=== PATIENT | female | born 2000 | race Two or more races ===

== ENCOUNTER 2021-11-04 15:36 | Emergency (ER) | payer MEDICAID, OTHER ==
[~2021-11-04] VITALS: Ht 157.5 cm; Wt 75.8 kg
[2021-11-04 16:59] LABS: Basophils # (auto) 0 10 ^3/uL (0-0.2); Basophils % (auto) 0.3 % (0.0-2.0); Eosinophils # (auto) 0.1 10 ^3/uL (0-0.8); Monocytes # (auto) 0.6 10 ^3/uL (0-1.3); Neutrophils # (auto) 7.9 10 ^3/uL (1.6-8.6)
[2021-11-04 17:01] LABS: Eosinophils % (auto) 0.8 % (0.0-7.0); Hematocrit 39.8 % (36.0-46.0); Hemoglobin 12.7 g/dL (12.2-16.2); Lymphocytes # (auto) 2.6 10 ^3/uL (0.4-5.4); Lymphocytes % (auto) 23.4 % (10.0-50.0); Mean Corpuscular Hemoglobin 25.5 pg (28.0-32.0); Mean Corpuscular Volume 79.8 fL (80.0-100.0); Monocytes % (auto) 5.7 % (0.0-12.0); Neutrophils % (auto) 69.8 % (37.0-80.0); Nucleated Red Blood Cells % 0.1 %; Red Blood Cells 4.98 10^6/uL (4.0-5.20); Red Cell Distribution Width 12.4 % (11.8-14.3); White Blood Cell 11.3 10^3/uL (4.4-10.8)
[2021-11-04 17:12] LABS: Albumin 3.2 g/dL (3.4-5.0); Calcium 8.7 mg/dL (8.5-10.1); Potassium 3.7 mmol/L (3.5-5.1)
[2021-11-04 17:15] LABS: BUN/Creatinine Ratio 13.8; Bilirubin, Total 0.3 mg/dL (0.2-1.0); Total Protein 7.7 g/dL (6.4-8.2)
[2021-11-05] MEDS ORDERED: PREN-96 PO (04:36)
[2021-11-05 04:44] VITALS: BP 126/78
== END 2021-11-05 04:56 | disposition home or self-care (01) ==
LOC: ER 15:36
DX: O21.8 Other vomiting complicating pregnancy (principal); O26.891 Other specified pregnancy related conditions, first trimester; R10.2 Pelvic and perineal pain; Z3A.01 Less than 8 weeks gestation of pregnancy
CPT/HCPCS: 36415; 80053; 84702; 85025

== ENCOUNTER → 2021-12-01 | Outpatient (CLI) | payer MEDICAID ==
[~2021-12-01] MED LIST: PREN-96 PO
[2021-12-01 14:32] LABS: Basophils # (auto) 0 10 ^3/uL (0-0.2); Basophils % (auto) 0.3 % (0.0-2.0); Eosinophils # (auto) 0.1 10 ^3/uL (0-0.8); Eosinophils % (auto) 1.6 % (0.0-7.0); Hematocrit 39.1 % (36.0-46.0); Hemoglobin 13.2 g/dL (12.2-16.2); Lymphocytes # (auto) 2.5 10 ^3/uL (0.4-5.4); Lymphocytes % (auto) 29.8 % (10.0-50.0); Mean Corpuscular Hemoglobin 27.1 pg (28.0-32.0); Mean Corpuscular Hgb Conc. 33.6 g/dL (32.0-36.0); Mean Corpuscular Volume 80.5 fL (80.0-100.0); Monocytes # (auto) 0.6 10 ^3/uL (0-1.3); Monocytes % (auto) 6.7 % (0.0-12.0); Neutrophils # (auto) 5.1 10 ^3/uL (1.6-8.6); Neutrophils % (auto) 61.6 % (37.0-80.0); Red Blood Cells 4.86 10^6/uL (4.0-5.20); Red Cell Distribution Width 13.3 % (11.8-14.3); White Blood Cell 8.3 10^3/uL (4.4-10.8)
[2021-12-01 15:30] LABS: Alcohol, Urine < 3.0 mg/dL (0-10); Amphetamine Screen, Urine NEGATIVE (NEGATIVE); Barbiturate Scree,Urine NEGATIVE (NEGATIVE); Benzodiazephine Screen, Urine NEGATIVE (NEGATIVE); Cannabinoid Screen, Urine NEGATIVE (NEGATIVE); Cocaine Screen, Urine NEGATIVE (NEGATIVE); Opiate Scree,Urine NEGATIVE (NEGATIVE); Phencyclidine Screen, Urine NEGATIVE (NEGATIVE)
[2021-12-02 06:06] LABS: RPR Non Reactive (Non Reactive)
== END | disposition home or self-care (01) ==
LOC: LAB 13:44
PROVIDERS: ATTEND Obstetrics & Gynecology
DX: Z34.00 Encounter for supervision of normal first pregnancy, unspecified trimester (principal); Z31.430 Encounter of female for testing for genetic disease carrier status for procreative management; N39.0 Urinary tract infection, site not specified; Z3A.00 Weeks of gestation of pregnancy not specified
CPT/HCPCS: 36415; 80307; 83036; 84112; 84144; 84702; 85025; 86592; 86703; 86762; 86850; 86900; 86901; 87086; 87340

== ENCOUNTER 2022-05-12 10:40 | Observation (INO) | payer MEDICAID ==
[~2022-05-12] VITALS: Ht 167.6 cm; Wt 77.1 kg
== END 2022-05-12 14:35 | disposition home or self-care (01) ==
LOC: UNDOADMOB 10:40 → LDRP 10:40
PROVIDERS: ADMIT Obstetrics & Gynecology; ATTEND Obstetrics & Gynecology
DX: O62.9 Abnormality of forces of labor, unspecified (principal); O26.893 Other specified pregnancy related conditions, third trimester; R10.30 Lower abdominal pain, unspecified; Z3A.34 34 weeks gestation of pregnancy
CPT/HCPCS: 59025; 76805; 81002; G0378

== ENCOUNTER 2022-06-20 08:35 | Observation (INO) | payer MEDICAID | END 2022-06-20 09:45 | disposition home or self-care (01) | LOC: LDRP 08:35 | PROVIDERS: ADMIT Obstetrics & Gynecology; ATTEND Obstetrics & Gynecology | DX: O62.9 Abnormality of forces of labor, unspecified (principal); Z3A.39 39 weeks gestation of pregnancy | CPT/HCPCS: 59025; 81002; G0378 ==

== ENCOUNTER 2022-06-21 10:20 | Observation (INO) | payer MEDICAID | END 2022-06-21 12:56 | disposition home or self-care (01) | LOC: LDRP 10:20 | PROVIDERS: ADMIT Obstetrics & Gynecology; ATTEND Obstetrics & Gynecology | DX: O62.9 Abnormality of forces of labor, unspecified (principal); Z3A.39 39 weeks gestation of pregnancy | CPT/HCPCS: 59025; 76818; 81002; 94760; G0378 ==

== ENCOUNTER 2022-06-23 11:09 | Observation (INO) | payer MEDICAID | END 2022-06-23 13:13 | disposition home or self-care (01) | LOC: UNDOADMOB 11:09 → LDRP 11:09 → UNDODISOB 13:13 | PROVIDERS: ADMIT Obstetrics & Gynecology; ATTEND Obstetrics & Gynecology | DX: O48.0 Post-term pregnancy (principal); O62.9 Abnormality of forces of labor, unspecified; Z3A.39 39 weeks gestation of pregnancy | CPT/HCPCS: 59025; 76818; 81002; 94760; G0378 ==

== ENCOUNTER 2022-06-24 19:02 | Observation (INO) | payer MEDICAID ==
[2022-06-24] MEDS ORDERED: DERMOPLAST 60ML BOTTLE TOP PRN (20:45)
[2022-06-24] MEDS ORDERED: PROMETHAZINE HCL 25 MG/ML 1ML IM PRN (20:45)
[2022-06-24] MEDS ORDERED: ACETAMINOPHEN 325 MG TAB PO PRN (20:45)
[2022-06-24] MEDS ORDERED: LACTATED RINGER'S 1,000 ML IV SCH (20:45)
[2022-06-24] MEDS ORDERED: MINERAL OIL TOPICAL 10ml TOP PRN (20:45)
[2022-06-24] MEDS ORDERED: ONDANSETRON HCL 4 MG/2 ML VIAL IV PRN (20:45)
[2022-06-24] MEDS ORDERED: diphenhdrAMINE HCL 50 MG/1 ML VL IV PRN (20:45)
[2022-06-24] MEDS ORDERED: METHYLERGONOVINE MALEATE 0.2 MG/ML AMP IM PRN (20:45)
[2022-06-24] MEDS ORDERED: TERBUTALINE SULFATE 1 MG/ML 1ML VIAL SC PRN (20:45)
[2022-06-24] MEDS ORDERED: LACT. RINGERS/OXYTOCIN 20UNITS 500 ML IV ONE ×2 (20:45→21:15)
[2022-06-24] MEDS ORDERED: miSOPROStol 100 mcg TAB SL PRN (20:45)
[2022-06-24] MEDS ORDERED: LIDOCAINE 2%HCL (LOCAL ANESTH.) INJ 20ML MDV IJ PRN (20:45)
[2022-06-24] MEDS ORDERED: TRANEXAMIC ACID 1,000 MG in SODIUM CHL 0.9% 100 ML IV PRN (20:45)
[2022-06-24] MEDS ORDERED: BUTORPHANOL TARTRATE 2 MG/1 ML VIAL IV PRN ×2 (20:45)
[2022-06-24] MEDS ORDERED: WITCH HAZEL-GLYCERIN PAD TOP PRN (20:45)
[2022-06-24] MEDS ORDERED: PHISODERM TOP SOLN 240ML BTL TOP PRN (20:45)
[2022-06-24] MEDS ORDERED: CARBOPROST TROMETHAMINE 250 MCG/1ML VIAL IM PRN (20:45)
[2022-06-24] MEDS ORDERED: miSOPROStol 50 MCG per PRE-CUT 1/2 TAB PO PRN (20:45)
[2022-06-25] MEDS ORDERED: DIPHENOXYLATE W/ATROPINE 2.5 MG TAB PO SCH
== END 2022-06-24 21:41 | disposition home or self-care (01) ==
LOC: LDRP 19:02
PROVIDERS: ADMIT Obstetrics & Gynecology; ATTEND Obstetrics & Gynecology
DX: O48.0 Post-term pregnancy (principal); O36.63X0 Maternal care for excessive fetal growth, third trimester, not applicable or unspecified; Z3A.40 40 weeks gestation of pregnancy
CPT/HCPCS: 59025; 76818; 81002; 94760; G0378

== ENCOUNTER 2022-06-25 11:55 | Inpatient (IN) | payer MEDICAID ==
[~2022-06-25] VITALS: Ht 162.6 cm; Wt 91.6 kg
[2022-06-25 12:52] LABS: Urine Bacteria FEW /hpf (None Seen); Urine Blood 3+ /uL (Negative); Urine Hyaline Cast FEW /lpf (0 - 2); Urine Specific Gravity 1.008 (1.001-1.035); Urine WBC 4 /hpf (0 - 5)
[2022-06-25 13:17] LABS: Alcohol, Urine < 3.0 mg/dL (0-10); Amphetamine Screen, Urine NEGATIVE (NEGATIVE); Barbiturate Scree,Urine NEGATIVE (NEGATIVE); Benzodiazephine Screen, Urine NEGATIVE (NEGATIVE); Cannabinoid Screen, Urine NEGATIVE (NEGATIVE); Cocaine Screen, Urine NEGATIVE (NEGATIVE); Opiate Scree,Urine NEGATIVE (NEGATIVE); Phencyclidine Screen, Urine NEGATIVE (NEGATIVE)
[2022-06-25] MEDS ORDERED: PROMETHAZINE HCL 25 MG/ML 1ML IV PRN (13:30)
[2022-06-25] MEDS ORDERED: LIDOCAINE 2%HCL (LOCAL ANESTH.) INJ 20ML MDV IJ PRN (13:30)
[2022-06-25] MEDS ORDERED: BUTORPHANOL TARTRATE 2 MG/1 ML VIAL IV PRN ×2 (13:30)
[2022-06-25] MEDS ORDERED: WITCH HAZEL-GLYCERIN PAD TOP PRN (13:30)
[2022-06-25] MEDS ORDERED: LACT. RINGERS/OXYTOCIN 20UNITS 500 ML IV ONE ×2 (13:30→14:00)
[2022-06-25] MEDS ORDERED: PHISODERM TOP SOLN 240ML BTL TOP PRN (13:30)
[2022-06-25] MEDS ORDERED: DERMOPLAST 60ML BOTTLE TOP PRN (13:30)
[2022-06-25] MEDS: LACTATED RINGER'S 1,000 ML IV SCH ×2 (13:56→20:25)
[2022-06-25 14:06] LABS: Basophils # (auto) 0 10 ^3/uL (0-0.2); Basophils % (auto) 0.3 % (0.0-2.0); Eosinophils # (auto) 0 10 ^3/uL (0-0.8); Eosinophils % (auto) 0.4 % (0.0-7.0); Hematocrit 37.1 % (36.0-46.0); Hemoglobin 11.9 g/dL (12.2-16.2); Lymphocytes # (auto) 2.4 10 ^3/uL (0.4-5.4); Lymphocytes % (auto) 20.6 % (10.0-50.0); Mean Corpuscular Hemoglobin 25.6 pg (28.0-32.0); Mean Corpuscular Volume 79.8 fL (80.0-100.0); Monocytes # (auto) 0.8 10 ^3/uL (0-1.3); Monocytes % (auto) 6.8 % (0.0-12.0); Neutrophils # (auto) 8.3 10 ^3/uL (1.6-8.6); Neutrophils % (auto) 71.9 % (37.0-80.0); Nucleated Red Blood Cells % 0.1 %; Red Blood Cells 4.65 10^6/uL (4.0-5.20); Red Cell Distribution Width 15.3 % (11.8-14.3); White Blood Cell 11.5 10^3/uL (4.4-10.8)
[2022-06-25 14:31] LABS: INR 0.92 (0.9-1.15); Partial Thromboplastin Time 28.6 sec (24.6-33.4)
[2022-06-25] MEDS ORDERED: miSOPROStol 50 MCG per PRE-CUT 1/2 TAB PO PRN (14:45)
[2022-06-25 14:57] LABS: Albumin 2.5 g/dL (3.4-5.0); Calcium 8.4 mg/dL (8.5-10.1); Potassium 3.8 mmol/L (3.5-5.1)
[2022-06-25 15:00] LABS: BUN/Creatinine Ratio 15.7 (10.0-20.0); Bilirubin, Total 0.4 mg/dL (0.2-1.0)
[2022-06-25] MEDS: ceFAZolin 1GM/50ML 50 ML IV SCH (18:25)
[2022-06-26] MEDS: ceFAZolin 1GM/50ML 50 ML IV SCH ×3 (01:55→17:29)
[2022-06-26] MEDS ORDERED: ePHEDrine SULFATE 50 MG/ML AMP IV ONE (02:30)
[2022-06-26] MEDS ORDERED: NALOXONE HCL 0.4 MG/ML VIAL IV ONE (02:30)
[2022-06-26] MEDS ORDERED: ROPIVACAINE HCL 200 ML EPI SCH (02:30)
[2022-06-26] MEDS ORDERED: Lidocaine W-Epinephrine 1.5%-1:200,000 INJ 10ml Vial IJ ONE (02:30)
[2022-06-26] MEDS: LACTATED RINGER'S 1,000 ML IV SCH ×3 (02:49→20:46)
[2022-06-26] MEDS ORDERED: TERBUTALINE SULFATE 1 MG/ML 1ML VIAL SC PRN (06:00)
[2022-06-26] MEDS ORDERED: LACT. RINGERS/OXYTOCIN 20UNITS 1,000 ML IV SCH (06:00)
[2022-06-26 07:07] LABS: RPR Non Reactive (Non Reactive)
[2022-06-26] MEDS ORDERED: ONDANSETRON ODT 4 MG TAB PO PRN (19:30)
[2022-06-26] MEDS ORDERED: LACT. RINGERS/OXYTOCIN 20UNITS 500 ML IV ONE ×2 (19:30→20:00)
[2022-06-26] MEDS ORDERED: DOCUSATE SOD 100 MG CAP PO SCH (22:00)
[2022-06-26 23:02] VITALS: BP 130/70
[2022-06-27 03:00] VITALS: BP 112/65
[2022-06-27] MEDS: ACETAMINOPHEN 325 MG TAB PO PRN ×2 (05:48→13:58)
[2022-06-27] MEDS: IBUPROFEN 800 MG TAB PO SCH ×2 (10:21→18:55)
[2022-06-27 15:30] VITALS: BP 114/72
[2022-06-27 19:00] VITALS: BP 128/77
[2022-06-27 21:45] VITALS: BP 128/77
== END 2022-06-27 21:45 | disposition home or self-care (01) | DRG 560 ==
LOC: LDRP 11:55 → OBSVTOIN 13:28 → LDRP 15:17
PROVIDERS: ADMIT Obstetrics & Gynecology; ATTEND Obstetrics & Gynecology
PROC: 10D07Z6 Extraction of Products of Conception, Vacuum, Via Natural or Artificial Opening (ICD-10-PCS; principal; 2022-06-26)
PROC: 0HQ9XZZ Repair Perineum Skin, External Approach (ICD-10-PCS; 2022-06-26)
PROC: 0KQM0ZZ Repair Perineum Muscle, Open Approach (ICD-10-PCS; 2022-06-26)
PROC: 3E0R3BZ Introduction of Anesthetic Agent into Spinal Canal, Percutaneous Approach (ICD-10-PCS; 2022-06-26)
PROC: 00HU33Z Insertion of Infusion Device into Spinal Canal, Percutaneous Approach (ICD-10-PCS; 2022-06-26)
DX: O48.0 Post-term pregnancy (principal); Z37.0 Single live birth; O70.0 First degree perineal laceration during delivery; O70.1 Second degree perineal laceration during delivery; Z3A.40 40 weeks gestation of pregnancy
CPT/HCPCS: 36415; 59025; 59409; 62282; 80053; 80307; 81001; 81002; 84112; 85025; 85610; 85730; 86592; 86850; 86900; 86901; 94760; 94762; 96360; 96361; 96365; 96366; G0378; J0690; J2590